=== PATIENT | female | born 2000 | race African-American/Black ===

== ENCOUNTER 2022-05-28 11:45 | Observation (INO) | payer OTHER ==
[~2022-05-28] VITALS: Ht 157.5 cm; Wt 79.4 kg
== END 2022-05-28 15:00 | disposition home or self-care (01) ==
LOC: 8 EST LDRP 11:45
PROVIDERS: ADMIT Obstetrics & Gynecology; ATTEND Obstetrics & Gynecology
DX: O42.92 Full-term premature rupture of membranes, unspecified as to length of time between rupture and onset of labor (principal); O62.9 Abnormality of forces of labor, unspecified; Z3A.37 37 weeks gestation of pregnancy
CPT/HCPCS: 59025; 76805; 76818; 81002; 99281; G0378

== ENCOUNTER 2022-06-20 02:13 | Inpatient (IN) | payer OTHER ==
[~2022-06-20] VITALS: Ht 157.5 cm; Wt 80.7 kg
[2022-06-20] MEDS ORDERED: NALOXONE HCL 0.4 MG/ML 1ML VIAL IM PRN (03:30)
[2022-06-20] MEDS ORDERED: METHYLERGONOVINE MALEATE 0.2 MG/ML IM PRN (03:30)
[2022-06-20] MEDS ORDERED: PENICILLIN G POTASSIUM 2.5 MMU in DEXTROSE 5% WATER 50 ML IV SCH (03:30)
[2022-06-20] MEDS ORDERED: PENICILLIN G POTASSIUM 5 MMU in DEXT 5% WATER 100 ML IV SCH (03:30)
[2022-06-20] MEDS ORDERED: BUTORPHANOL TARTRATE 2 MG/ML VIAL IV PRN (03:30)
[2022-06-20] MEDS ORDERED: LIDOCAINE HCL 1% 20ML VIAL (Pyxis) INJ INFIL SCH (03:30)
[2022-06-20] MEDS: LACTATED RINGERS 1,000 ML IV SCH ×5 (04:43→22:44)
[2022-06-20 04:52] LABS: BASOPHILS % 0.2 % (0.0-2.0); EOSINOPHILS % 0.7 % (0.0-5.0); HEMATOCRIT. 29.1 % (36.0-48.0); HEMOGLOBIN. 9.1 g/dL (12.0-16.0); LYMPHOCYTES % 15.7 % (20.0-50.0); MEAN CORPUSCULAR HEMOGLOBIN 21.2 pg (28.0-32.0); MEAN CORPUSCULAR VOLUME 67.5 fL (81.0-99.0); MEAN PLATELET VOLUME 9.8 fl (7.4-10.4); MONOCYTES % 7.2 % (2.0-8.0); NEUTROPHILS % 76.2 % (40.0-76.0); PLATELET 214 x1000/uL (130-400); RED BLOOD CELL COUNT 4.31 mill/uL (4.2-5.4); RED CELL DISTRIBUTION WIDTH 18.3 % (11.6-14.6)
[2022-06-20 05:18] LABS: PARTIAL THROMBOPLASTIN TIME 32.1 sec (23.4-31.0); PROTHROMBIN TIME 10.5 sec (9.6-11.0)
[2022-06-20 05:26] LABS: CLARITY URINE CLEAR (CLEAR); COLOR URINE YELLOW (YELLOW); KETONES URINE TRACE (NEGATIVE); LEUKOCYTE ESTERASE URINE NEGATIVE (NEGATIVE); NITRITE URINE NEGATIVE (NEGATIVE); OCCULT BLOOD URINE NEGATIVE (NEGATIVE); PROTEIN URINE NEGATIVE (NEGATIVE); SPECIFIC GRAVITY URINE 1.016 (1.005-1.030)
[2022-06-20 05:28] LABS: PLATELET ESTIMATE NORMAL
[2022-06-20] MEDS ORDERED: ROPIVACAINE HCL/PF EPIDURAL 200 ML EPI ONE ×2 (05:37→21:06)
[2022-06-20 06:07] LABS: *AMPHETAMINES SCREEN URINE NEGATIVE (NEGATIVE); *BARBITURATES SCREEN URINE NEGATIVE (NEGATIVE); *BENZODIAZEPINES SCREEN URINE NEGATIVE (NEGATIVE); *COCAINE SCREEN URINE NEGATIVE (NEGATIVE); CANNABINOID URINE SCREEN NEGATIVE (NEGATIVE); METHADONE URINE SCREEN NEGATIVE (NEGATIVE); OPIATES URINE SCREEN NEGATIVE (NEGATIVE); PHENCYCLIDINE URINE SCREEN NEGATIVE (NEGATIVE)
[2022-06-20 06:53] LABS: HEPATITIS B SURFACE ANTIGEN NEGATIVE
[2022-06-20] MEDS: OXYTOCIN 30 UNITS/500ML NS PMX 500 ML IV SCH (07:10)
[2022-06-20] MEDS: CLINDAMYCIN 900 MG PREMIX 50 ML IV SCH ×2 (09:01→16:58)
[2022-06-20] MEDS ORDERED: ROPIVACAINE HCL/PF EPIDURAL 200 ML EPI NR (21:15)
[2022-06-21] MEDS ORDERED: ACETAMINOPHEN WITH CODEINE 300/30MG TABLET PO PRN (01:15)
[2022-06-21] MEDS ORDERED: RHO(D) IMMUNE GLOBULIN 300 MCG/SYR IM PRN (01:15)
[2022-06-21] MEDS ORDERED: BISACODYL 10MG SUPP PR PRN (01:15)
[2022-06-21] MEDS ORDERED: HEMORRHOIDAL SUPP PR PRN (01:15)
[2022-06-21] MEDS ORDERED: OXYCODONE HCL/ACETAMINOPHEN 5/325MG TABLET PO PRN (01:15)
[2022-06-21] MEDS ORDERED: DIPHENHYDRAMINE 25MG CAPSULE PO PRN (01:15)
[2022-06-21] MEDS ORDERED: LANOLIN OINT 7GM TUBE TOP PRN (01:15)
[2022-06-21] MEDS ORDERED: IBUPROFEN 400MG TABLET PO PRN (01:15)
[2022-06-21] MEDS ORDERED: OXYTOCIN 30 UNITS/500ML NS PMX 500 ML IV SCH (01:15)
[2022-06-21] MEDS ORDERED: BENZOCAINE/LANOLIN/ALOE VERA SPRAY TOP PRN (01:15)
[2022-06-21] MEDS ORDERED: METHYLERGONOVINE MALEATE 0.2 MG/ML IM PRN (01:30)
[2022-06-21] MEDS: OXYTOCIN 30 UNITS/500ML NS PMX 500 ML IV SCH (02:27)
[2022-06-21 02:30] VITALS: BP 102/55
[2022-06-21] MEDS: IBUPROFEN 800MG TABLET PO PRN ×2 (03:18→21:56)
[2022-06-21] MEDS: GLYCERIN/WITCH HAZEL LEAF MEDICATED PAD TOP PRN (03:19)
[2022-06-21 04:00] VITALS: BP 127/68
[2022-06-21 09:00] VITALS: BP 104/53
[2022-06-21] MEDS: MAGNESIUM/ALUMINUM HYDROXIDE/SIMETHICONE 30ML UDC PO SCH ×2 (12:30→21:56)
[2022-06-21] MEDS: SIMETHICONE 80MG TABLET CHEW PO SCH ×2 (13:00→21:56)
[2022-06-21 16:00] VITALS: BP 108/58
[2022-06-21 20:00] VITALS: BP 111/60
[2022-06-21] MEDS ORDERED: DOCUSATE SODIUM 100MG CAPSULE PO SCH (21:00)
[2022-06-22 04:00] VITALS: BP 117/62
[2022-06-22 08:00] VITALS: BP 108/55
[2022-06-22 10:12] LABS: BASOPHILS % 0.4 % (0.0-2.0); EOSINOPHILS % 1.6 % (0.0-5.0); LYMPHOCYTES % 24.4 % (20.0-50.0); MEAN CORPUSCULAR HEMOGLOBIN 21.5 pg (28.0-32.0); MEAN CORPUSCULAR VOLUME 68.2 fL (81.0-99.0); MEAN PLATELET VOLUME 8.7 fl (7.4-10.4); MONOCYTES % 6.3 % (2.0-8.0); NEUTROPHILS % 67.3 % (40.0-76.0); PLATELET 194 x1000/uL (130-400); RED BLOOD CELL COUNT 2.64 mill/uL (4.2-5.4); RED CELL DISTRIBUTION WIDTH 18.6 % (11.6-14.6)
[2022-06-22 10:19] LABS: HEMOGLOBIN. 5.7 g/dL (12.0-16.0)
[2022-06-22] MEDS: FERROUS SULFATE 325MG TABLET PO SCH ×2 (12:30→12:48)
[2022-06-22] MEDS: PRENATAL VIT/FE FUMARATE/FA TABLET PO SCH (12:47)
[2022-06-22] MEDS: IBUPROFEN 800MG TABLET PO PRN (12:48)
[2022-06-22 16:00] VITALS: BP 116/64
[2022-06-22 19:16] LABS: MEAN CORPUSCULAR HEMOGLOBIN 21.5 pg (28.0-32.0); MEAN CORPUSCULAR VOLUME 69.1 fL (81.0-99.0); PLATELET 190 x1000/uL (130-400); RED BLOOD CELL COUNT 2.61 mill/uL (4.2-5.4); RED CELL DISTRIBUTION WIDTH 18.2 % (11.6-14.6)
[2022-06-22 19:19] LABS: HEMOGLOBIN 5.6 g/dL (12.0-16.0)
[2022-06-22 19:30] VITALS: BP 122/62
[2022-06-22] MEDS: GLYCERIN/WITCH HAZEL LEAF MEDICATED PAD TOP PRN (19:56)
[2022-06-22] MEDS: SIMETHICONE 80MG TABLET CHEW PO SCH (19:57)
[2022-06-22] MEDS: MAGNESIUM/ALUMINUM HYDROXIDE/SIMETHICONE 30ML UDC PO SCH (19:57)
[2022-06-23 04:00] VITALS: BP 114/52
[2022-06-23 08:52] VITALS: BP 117/75
[2022-06-23] MEDS: PRENATAL VIT/FE FUMARATE/FA TABLET PO SCH (08:54)
[2022-06-23] MEDS: FERROUS SULFATE 325MG TABLET PO SCH (08:54)
[2022-06-23] MEDS ORDERED: IRON SUCROSE COMPLEX 100 MG/5 ML ML IV NR (10:00)
[2022-06-23] MEDS ORDERED: FERR-63 PO (14:08)
[2022-06-23] MEDS ORDERED: IBUP-2030 PO (14:08)
== END 2022-06-23 17:42 | disposition home or self-care (01) | DRG 560 ==
LOC: OBSVTOIN 02:13 → 8 EST LDRP 02:13 → 8EST 06-21 03:17
PROVIDERS: ADMIT Obstetrics & Gynecology; ATTEND Obstetrics & Gynecology
PROC: 10D07Z6 Extraction of Products of Conception, Vacuum, Via Natural or Artificial Opening (ICD-10-PCS; principal; 2022-06-20)
PROC: 0KQM0ZZ Repair Perineum Muscle, Open Approach (ICD-10-PCS; 2022-06-20)
PROC: 3E0R3BZ Introduction of Anesthetic Agent into Spinal Canal, Percutaneous Approach (ICD-10-PCS; 2022-06-20)
PROC: 00HU33Z Insertion of Infusion Device into Spinal Canal, Percutaneous Approach (ICD-10-PCS; 2022-06-20)
DX: O99.02 Anemia complicating childbirth (principal); Z37.0 Single live birth; D62 Acute posthemorrhagic anemia; O70.1 Second degree perineal laceration during delivery; Z20.822 Contact with and (suspected) exposure to COVID-19; Z3A.39 39 weeks gestation of pregnancy; Z88.0 Allergy status to penicillin
CPT/HCPCS: 36415; 76805; 76818; 80305; 81003; 85025; 85027; 86592; 86703; 86762; 86850; 86900; 87340; 87426; 99281; J2795; J3490; J7060; J7120; A4315; J2590